=== PATIENT | female | born 1955 | race Caucasian/White ===

== ENCOUNTER 2017-09-17 00:41 | Emergency (ER) | payer OTHER ==
[~2017-09-17] VITALS: Ht 172.7 cm; Wt 86.2 kg
--- NOTE | 2017-09-17 01:05 | ED UPPER/LOWER EXTREMITY COMPL ---
History of Present Illness General Chief Complaint: Animal/Insect Bite Stated Complaint: "TICK ON BACK left LEG" PER PT Source: patient Exam Limitations: no limitations Vital Signs & Intake/Output Vital Signs & Intake/Output Vital Signs Date Time Temp Pulse Resp B/P B/P Pulse O2 O2 Flow FiO2 Mean Ox Delivery Rate 09/17 0120 98.0 60 16 126/74 97 Allergies Coded Allergies: NO KNOWN ALLERGIES (12/04/10) Triage Nurses Notes Reviewed? yes Onset: Abrupt Duration: hour(s): Timing: recent history Severity: mild Pain/Injury Location: Left: Leg. Method of Injury: tick bite HPI: 62 yo woman presents with a tick embedded into her left calf. She first noticed it this evening, after she had been gardening in her yard earlier today. She believes it was <24 hours on her leg. She notes no pain, rash, tenderness, swelling. She is otherwise well. Past History Travel History Traveled to [place] past 21 day No Medical History Any Pertinent Medical History? see below for history Cardiovascular: hypertension Tetanus Vaccine: 09/19/12 Surgical History Surgical History: none Psychosocial History What is your primary language [place] Family History Hx Contributory? No Review of Systems Review of Systems Constitutional: Reports: no symptoms. EENTM: Reports: no symptoms. Respiratory: Reports: no symptoms. Cardiovascular: Reports: no symptoms. Gastrointestinal/Abdominal: Reports: no symptoms. Genitourinary: Reports: no symptoms. Musculoskeletal: Reports: no symptoms. Skin: Reports: no symptoms. Neurological/Psychological: Reports: no symptoms. Hematologic/Endocrine: Reports: no symptoms. Immunological: Reports: no symptoms. All Other Systems: Reviewed and Negative Physical Exam Physical Exam General Appearance: well developed/nourished, mild distress Head: atraumatic Leg Left: deer tick embedded in left calf. The tick does not appear to be engorged with blood, no erythema, discharge. Skin: intact, normal color, warm/dry Progress Differential Diagnosis: tick bite Plan of Care: tick easily removed, gave doxy for prophylaxis, discussed measures at length. pt safe for discharge. Departure Departure Disposition: HOME OR SELF CARE Condition: Stable Clinical Impression Primary Impression: Tick bite Referrals: Patient Has No Primary Care Dr Departure Forms: Customer Survey General Discharge Information
[2017-09-17 01:20] VITALS: BP 126/74
== END 2017-09-17 01:37 ==
LOC: ERH 00:41
DX: S80.862A Insect bite (nonvenomous), left lower leg, initial encounter (principal); W57.XXXA Bitten or stung by nonvenomous insect and other nonvenomous arthropods, initial encounter; Y92.9 Unspecified place or not applicable; Y93.H2 Activity, gardening and landscaping